=== PATIENT | female | born 1975 | race Caucasian/White ===

== ENCOUNTER → 2016-09-02 | Outpatient (CLI) | payer OTHER ==
[~2016-09-02] MED LIST: LEXAPRO10 MG PO; TOPROL XL25 MG PO
== END | disposition disaster alternative care site (69) ==
LOC: GRAD 07:35
DX: R44.2 Other hallucinations (principal)

== ENCOUNTER → 2016-09-09 | Outpatient (CLI) | payer OTHER | END | disposition disaster alternative care site (69) | LOC: GOPD 09-05 → GBCOE 09:18 → GOPD 10:00 | PROC: 0HBU3ZX Excision of Left Breast, Percutaneous Approach, Diagnostic (ICD-10-PCS; principal; 2016-09-09) | DX: N63 Unspecified lump in breast (principal); Z98.82 Breast implant status | CPT/HCPCS: J7050 ==